=== PATIENT | male | born 1970 | race Caucasian/White ===

== ENCOUNTER 2017-06-10 15:32 | Emergency (ER) | payer BC ==
[~2017-06-10] VITALS: Ht 182.9 cm; Wt 101.0 kg
[2017-06-10 16:14] LABS: HEMATOCRIT 31.5 % (38.0-50.0); MCH 25.3 PG (29.0-34.0); MCHC 31.4 G/DL (30.0-36.0); MCV 80.4 FL (86-99); MEAN PLAT.VOLUME 8.8 uM^3 (9.0-12.4); PLATELET COUNT 389 K/uL (156-360); RBC DIS.WIDTH-CV 15.1 % (11.8-14.6); RBC DIS.WIDTH-SD 44.4 % (39-53); RED BLOOD COUNT 3.92 M/uL (4.00-5.50); WHITE BLOOD COUNT 7.5 K/uL (4.1-10.2)
[2017-06-10 16:24] LABS: CHLORIDE 105 mEq/L (99-109); POTASSIUM 4.2 mEq/L (3.7-5.4)
[2017-06-10 16:25] LABS: SODIUM 137 mEq/L (136-147)
[2017-06-10 16:28] LABS: ANION GAP 8 MEQ/L (2-14)
[2017-06-10 16:29] LABS: TOTAL BILIRUBIN 0.3 mg/dL (0.0-1.0)
[2017-06-10 16:30] LABS: ALKALINE PHOSPHATASE 78 IU/L (3-129); GFR ESTIMATE (CALCULATED) > 59 mL/min/
[2017-06-10 16:32] LABS: UREA NITROGEN (BUN) 21 mg/dL (9-23)
[2017-06-10 16:34] LABS: GLUCOSE 37 mg/dL (70-99); LIPASE 15 U/L (1.0-51.0)
[2017-06-10 16:35] LABS: TROP-I INTERPRETATION NEGATIVE; TROPONIN-I < 0.01 ng/mL (0.0-0.30)
[2017-06-10 17:10] LABS: POINT-OF-CARE METER ID UU13113800
[2017-06-10 17:13] LABS: ADD MIUA? NO; BILIRUBIN NEGATIVE; BLOOD NEGATIVE; COLOR COLORLESS ((YELLOW)); GLUCOSE (STRIP) NEGATIVE; KETONES NEGATIVE; LEUKOCYTES NEGATIVE; NITRITE NEGATIVE; PROTEIN (STRIP) NEGATIVE; SPECIFIC GRAVITY 1.004 (1.000-1.030); UCUL ADDED? NO; UROBILINOGEN 0.2 MG/DL (0.2-1.0)
[2017-06-10] MEDS ORDERED: LEVEMIR100 UNIT/2 SC (17:30)
[2017-06-10] MEDS ORDERED: LISINOPRIL-HCT1 EAC3 PO (17:30)
[2017-06-10] MEDS ORDERED: LEVOTHYROXINE75 MCG PO (17:30)
[2017-06-10] MEDS ORDERED: AMLODIPINE BES2.5 MG PO (17:30)
[2017-06-10] MEDS ORDERED: ROSUVASTATIN CA20 MG PO (17:30)
[2017-06-10] MEDS ORDERED: ASPIR-LOW81 MG PO (17:31)
[2017-06-10] MEDS ORDERED: TYLENOL EXTRA500 MG PO (17:31)
[2017-06-10] MEDS ORDERED: NOVOLOG PE100 UNITS/ SC (17:31)
[2017-06-10 18:57] LABS: TROP-I INTERPRETATION NEGATIVE; TROPONIN-I < 0.01 ng/mL (0.0-0.30)
[2017-06-10 19:56] VITALS: BP 146/77
[2017-06-11 08:05] LABS: POINT-OF-CARE METER ID UU13113778
== END 2017-06-10 19:56 | disposition home or self-care (01) ==
LOC: EME 15:32
PROVIDERS: Physician Assistant
DX: M25.512 Pain in left shoulder (principal); D64.9 Anemia, unspecified; E11.649 Type 2 diabetes mellitus with hypoglycemia without coma; E78.5 Hyperlipidemia, unspecified; I10 Essential (primary) hypertension; F17.200 Nicotine dependence, unspecified, uncomplicated
CPT/HCPCS: 71020; 80053; 81003; 82948; 83690; 84484; 85027; 93005; 99281; 99284

== ENCOUNTER → 2017-09-03 | Outpatient (CLI) | payer BC ==
[~2017-09-03] MED LIST: AMLODIPINE BES2.5 MG PO; ASPIR-LOW81 MG PO; LEVEMIR100 UNIT/2 SC; LEVOTHYROXINE75 MCG PO; LISINOPRIL-HCT1 EAC3 PO; NOVOLOG PE100 UNITS/ SC; ROSUVASTATIN CA20 MG PO; TYLENOL EXTRA500 MG PO
== END | disposition home or self-care (01) ==
LOC: CDC 08:58
DX: Z01.810 Encounter for preprocedural cardiovascular examination (principal); K40.90 Unilateral inguinal hernia, without obstruction or gangrene, not specified as recurrent; R94.31 Abnormal electrocardiogram [ECG] [EKG]
CPT/HCPCS: 93000

== ENCOUNTER 2017-09-13 05:21 | Day surgery (SDC) | payer BC ==
[~2017-09-13] VITALS: Ht 182.9 cm; Wt 104.3 kg
[~2017-09-13 05:21] MED LIST changes: +IRON325 M1 PO; +LEVOTHYROXINE88 MCG PO
[2017-09-13 06:01] VITALS: BP 160/78
[2017-09-13 06:15] LABS: POINT-OF-CARE METER ID UU14174212
[2017-09-13] MEDS ORDERED: PERCOCET 5/31 TABLET PO (10:08)
[2017-09-13] MEDS ORDERED: COLACE100 MG PO (10:08)
[2017-09-13 10:21] LABS: POINT-OF-CARE METER ID UU13113675
[2017-09-13 10:45] VITALS: BP 165/79
[2017-09-13 11:34] VITALS: BP 141/66
== END 2017-09-13 11:35 | disposition home or self-care (01) ==
LOC: SDC 05:21
PROVIDERS: Surgery
PROC: 0YU64JZ Supplement Left Inguinal Region with Synthetic Substitute, Percutaneous Endoscopic Approach (ICD-10-PCS; principal; 2017-09-13)
DX: K40.90 Unilateral inguinal hernia, without obstruction or gangrene, not specified as recurrent (principal); I10 Essential (primary) hypertension; E78.5 Hyperlipidemia, unspecified; E10.9 Type 1 diabetes mellitus without complications; E03.9 Hypothyroidism, unspecified; Z79.82 Long term (current) use of aspirin; Z79.4 Long term (current) use of insulin; F17.200 Nicotine dependence, unspecified, uncomplicated
CPT/HCPCS: 82948; C1727; C1781; J0131; J0330; J0690; J1100; J1170; J1885; J2250; J2405; J2710; J3010

== ENCOUNTER 2017-09-26 21:41 | Inpatient (IN) | payer BC ==
[~2017-09-26] VITALS: Ht 182.9 cm; Wt 109.2 kg
[~2017-09-26 21:41] MED LIST changes: +COLACE100 MG PO; +CYANOCOBAL1000 MCG/2 IM; +NOVOLOG MI100 UNIT/3 SC; +PERCOCET 5/31 TABLET PO
[2017-09-27 12:00] LABS: POINT-OF-CARE METER ID UU13113675
[2017-09-27 14:22] VITALS: BP 142/67
[2017-09-27 14:30] VITALS: BP 142/67
[2017-09-27 14:53] LABS: POINT-OF-CARE METER ID UU13113725
[2017-09-27 14:54] LABS: HEMATOCRIT 34.3 % (38.0-50.0); MCV 83.3 FL (86-99)
[2017-09-27 15:10] LABS: POINT-OF-CARE METER ID UU14174212
[2017-09-27 16:16] LABS: POINT-OF-CARE METER ID UU13113774
[2017-09-27 16:27] VITALS: BP 131/60
[2017-09-27 18:38] LABS: POINT-OF-CARE METER ID UU13113725
[2017-09-27 20:08] VITALS: BP 118/59
[2017-09-27 23:49] VITALS: BP 120/55
[2017-09-28 00:26] LABS: POINT-OF-CARE METER ID UU13113725
[2017-09-28 04:00] VITALS: BP 117/60
[2017-09-28 05:59] LABS: POINT-OF-CARE METER ID UU13113774
[2017-09-28 06:15] LABS: HEMATOCRIT 32.7 % (38.0-50.0); MCH 27.2 PG (29.0-34.0); MCHC 32.7 G/DL (30.0-36.0); MCV 83.2 FL (86-99); MEAN PLAT.VOLUME 9.2 uM^3 (9.0-12.4); PLATELET COUNT 359 K/uL (156-360); RBC DIS.WIDTH-CV 14.1 % (11.8-14.6); RED BLOOD COUNT 3.93 M/uL (4.00-5.50)
[2017-09-28 06:41] LABS: ANION GAP 8 MEQ/L (2-14); CHLORIDE 103 MEQ/L (99-109); GFR ESTIMATE (CALCULATED) 49 mL/min/; GLUCOSE 89 mg/dL (70-99); POTASSIUM 4.5 MEQ/L (3.7-5.4); SAMPLE HEMOLYSIS CHECK 0; SAMPLE ICTERIC CHECK 0; SAMPLE LIPEMIA CHECK 0; SODIUM 136 MEQ/L (136-147); UREA NITROGEN (BUN) 22 mg/dL (9-23)
[2017-09-28 07:00] VITALS: BP 123/62
[2017-09-28 11:13] VITALS: BP 140/67
[2017-09-28 12:17] LABS: POINT-OF-CARE METER ID UU13113774
[2017-09-28 15:20] VITALS: BP 132/63
[2017-09-28 16:29] LABS: POINT-OF-CARE METER ID UU13113725
[2017-09-28 20:03] VITALS: BP 144/67
[2017-09-28 22:28] LABS: POINT-OF-CARE METER ID UU13113725
[2017-09-28 23:32] VITALS: BP 148/65
[2017-09-29 04:12] VITALS: BP 149/67
[2017-09-29 06:03] LABS: POINT-OF-CARE METER ID UU13113725
[2017-09-29 07:24] VITALS: BP 151/72
[2017-09-29 11:30] VITALS: BP 162/73
[2017-09-29] MEDS ORDERED: ENDOCET 5-3251 EACH PO (11:30)
[2017-09-29 15:15] LABS: POINT-OF-CARE METER ID UU13113774
[2017-09-29 15:32] VITALS: BP 163/71
[2017-09-29 16:29] LABS: POINT-OF-CARE METER ID UU13113774
[2017-09-29 22:37] LABS: POINT-OF-CARE METER ID UU13113774
== END 2017-09-29 16:39 | disposition home or self-care (01) | DRG 658 ==
LOC: ENRESERV 21:41 → 2SOUTH 09-27 06:16 → ENRESERV 09-27 12:21 → 5EAST 09-27 13:42
PROVIDERS: Urology
PROC: 0TB10ZZ Excision of Left Kidney, Open Approach (ICD-10-PCS; principal; 2017-09-27)
DX: C64.2 Malignant neoplasm of left kidney, except renal pelvis (principal); E89.0 Postprocedural hypothyroidism; E78.2 Mixed hyperlipidemia; I10 Essential (primary) hypertension; K21.9 Gastro-esophageal reflux disease without esophagitis; E50.9 Vitamin A deficiency, unspecified; E53.8 Deficiency of other specified B group vitamins; E11.3299 Type 2 diabetes mellitus with mild nonproliferative diabetic retinopathy without macular edema, unspecified eye; Z79.4 Long term (current) use of insulin; F17.210 Nicotine dependence, cigarettes, uncomplicated; E11.65 Type 2 diabetes mellitus with hyperglycemia
CPT/HCPCS: 80048; 82948; 85014; 85018; 85027; 88305; 88307; 88331; J0330; J0690; J1100; J1170; J1815; J2250; J2405; J2710; J2795; J3010; J7030; J7050; J7120

== ENCOUNTER 2017-10-13 05:28 | Emergency (ER) | payer BC ==
[~2017-10-13] VITALS: Ht 182.9 cm; Wt 102.5 kg
[~2017-10-13 05:28] MED LIST changes: +ENDOCET 5-3251 EACH PO
[2017-10-13 06:08] LABS: HEMATOCRIT 33.2 % (38.0-50.0); MCH 27.8 PG (29.0-34.0); MCHC 33.1 G/DL (30.0-36.0); MCV 84.1 FL (86-99); MEAN PLAT.VOLUME 8.5 uM^3 (9.0-12.4); RBC DIS.WIDTH-CV 13.9 % (11.8-14.6); RBC DIS.WIDTH-SD 42.6 % (39-53); RED BLOOD COUNT 3.95 M/uL (4.00-5.50); WHITE BLOOD COUNT 13.9 K/uL (4.1-10.2)
[2017-10-13 06:11] LABS: PLATELET COUNT 615 K/uL (156-360)
[2017-10-13 06:19] LABS: CHLORIDE 97 mEq/L (99-109); POTASSIUM 4.5 mEq/L (3.7-5.4); SODIUM 131 mEq/L (136-147)
[2017-10-13 06:21] LABS: GLUCOSE 346 mg/dL (70-99)
[2017-10-13 06:22] LABS: ANION GAP 12 MEQ/L (2-14)
[2017-10-13 06:25] LABS: GFR ESTIMATE (CALCULATED) 53 mL/min/
[2017-10-13 06:26] LABS: UREA NITROGEN (BUN) 19 mg/dL (9-23)
[2017-10-13 06:45] LABS: ADD MIUA? YES; BILIRUBIN NEGATIVE; BLOOD LARGE; COLOR RED ((YELLOW)); GLUCOSE (STRIP) NEGATIVE; KETONES NEGATIVE; LEUKOCYTES NEGATIVE; NITRITE NEGATIVE; PH, URINE 7.5 (5-8); PROTEIN (STRIP) >300; UROBILINOGEN 0.2 MG/DL (0.2-1.0)
[2017-10-13 06:46] LABS: RED BLOOD CELLS TNTC /HPF (0-5); UCUL ADDED? YES
[2017-10-13 09:26] VITALS: BP 179/86
== END 2017-10-13 09:27 | disposition home or self-care (01) ==
LOC: EME 05:28
PROVIDERS: Emergency Medicine
DX: R31.0 Gross hematuria (principal); Z85.528 Personal history of other malignant neoplasm of kidney; Z90.5 Acquired absence of kidney; I10 Essential (primary) hypertension; E78.5 Hyperlipidemia, unspecified; E03.9 Hypothyroidism, unspecified; E11.9 Type 2 diabetes mellitus without complications; Z79.4 Long term (current) use of insulin; F17.200 Nicotine dependence, unspecified, uncomplicated
CPT/HCPCS: 74176; 80048; 81003; 85027; 87086; 99281; 99284; J2270; J7040

== ENCOUNTER 2017-10-22 23:05 | Inpatient (IN) | payer BC ==
[~2017-10-22] VITALS: Ht 182.9 cm; Wt 97.6 kg
[2017-10-23] VITALS (14 sets, daily range): BP systolic 98–169; BP diastolic 56–85
[2017-10-23 00:05] LABS: EOSINOPHIL (%) 3.2 % (0-5); EOSINOPHIL COUNT 0.4 K/uL (0-0.3); IMMATURE GRANULOCYTE (%) 0.4 % (0.0-0.7); IMMATURE GRANULOCYTE COUNT 0.1 K/uL; LYMPHOCYTE COUNT 2.4 K/uL (1.0-2.8); MCH 27.8 PG (29.0-34.0); MCHC 34.3 G/DL (30.0-36.0); MCV 81.1 FL (86-99); MONOCYTE (%) 9.9 % (3-12); MONOCYTE COUNT 1.2 K/uL (0-0.8); NEUTROPHIL (%) 66.6 % (45-76); RBC DIS.WIDTH-CV 13.2 % (11.8-14.6); RBC DIS.WIDTH-SD 39.5 % (39-53); RED BLOOD COUNT 2.59 M/uL (4.00-5.50); WHITE BLOOD COUNT 12.1 K/uL (4.1-10.2)
[2017-10-23 00:12] LABS: CHLORIDE 90 mEq/L (99-109); POTASSIUM 3.8 mEq/L (3.7-5.4); PTT 25.4 SEC (25-37); SODIUM 125 mEq/L (136-147)
[2017-10-23 00:13] LABS: GLUCOSE 169 mg/dL (70-99)
[2017-10-23 00:15] LABS: ANION GAP 12 MEQ/L (2-14)
[2017-10-23 00:17] LABS: GFR ESTIMATE (CALCULATED) 27 mL/min/
[2017-10-23 00:18] LABS: UREA NITROGEN (BUN) 40 mg/dL (9-23)
[2017-10-23 01:04] LABS: MEAN PLAT.VOLUME 8.4 uM^3 (9.0-12.4); PLAT.SUFFICIENCY ADEQUATE
[2017-10-23 01:11] LABS: PLATELET COUNT 399 K/uL (156-360)
[2017-10-23 11:38] LABS: BASOPHIL COUNT 0.1 K/uL (0-0.1); EOSINOPHIL (%) 1.3 % (0-5); EOSINOPHIL COUNT 0.1 K/uL (0-0.3); HEMATOCRIT 26.2 % (38.0-50.0); IMMATURE GRANULOCYTE (%) 0.3 % (0.0-0.7); INSTRUMENT ABS NEUTROPHIL CT 7.9 K/uL; LYMPHOCYTE COUNT 1.4 K/uL (1.0-2.8); MCH 27.7 PG (29.0-34.0); MCHC 33.6 G/DL (30.0-36.0); MCV 82.4 FL (86-99); MEAN PLAT.VOLUME 8.6 uM^3 (9.0-12.4); MONOCYTE (%) 10.5 % (3-12); MONOCYTE COUNT 1.1 K/uL (0-0.8); NEUTROPHIL (%) 74.1 % (45-76); NEUTROPHIL COUNT 7.9 K/uL (1.8-6.4); PLATELET COUNT 409 K/uL (156-360); RBC DIS.WIDTH-CV 13.2 % (11.8-14.6); WHITE BLOOD COUNT 10.6 K/uL (4.1-10.2)
[2017-10-23 11:39] LABS: RED BLOOD COUNT 3.18 M/uL (4.00-5.50)
[2017-10-23 12:13] LABS: ANION GAP 6 MEQ/L (2-14); CHLORIDE 91 MEQ/L (99-109); GFR ESTIMATE (CALCULATED) 34 mL/min/; POTASSIUM 5.4 MEQ/L (3.7-5.4); SAMPLE HEMOLYSIS CHECK 0; SAMPLE ICTERIC CHECK 0; SAMPLE LIPEMIA CHECK 0; SODIUM 122 MEQ/L (136-147); UREA NITROGEN (BUN) 39 mg/dL (9-23)
[2017-10-23 12:14] LABS: GLUCOSE 458 mg/dL (70-99)
[2017-10-23 16:48] LABS: ANION GAP 7 MEQ/L (2-14); CHLORIDE 90 MEQ/L (99-109); POTASSIUM 5.9 MEQ/L (3.7-5.4); SAMPLE HEMOLYSIS CHECK 0; SAMPLE ICTERIC CHECK 0; SAMPLE LIPEMIA CHECK 0; SODIUM 121 MEQ/L (136-147)
[2017-10-23 17:03] LABS: GFR ESTIMATE (CALCULATED) 34 mL/min/; UREA NITROGEN (BUN) 36 mg/dL (9-23)
[2017-10-23 17:04] LABS: GLUCOSE 502 mg/dL (70-99)
[2017-10-23 17:27] LABS: Estimated Average Glucose 192 mg/dL (70-123); HEMOGLOBIN A1c (GLYCOHEMOGLOB) 8.3 % HGB (Below 5.7)
[2017-10-23 17:48] LABS: HEMATOCRIT 28.9 % (38.0-50.0)
[2017-10-24 00:24] LABS: MCV 82.6 FL (86-99)
[2017-10-24 03:51] VITALS: BP 129/60
[2017-10-24 05:55] LABS: POINT-OF-CARE METER ID UU13113725
[2017-10-24 06:21] LABS: HEMATOCRIT 28.3 % (38.0-50.0); MCH 28.6 PG (29.0-34.0); MCV 81.8 FL (86-99); MEAN PLAT.VOLUME 8.8 uM^3 (9.0-12.4); PLATELET COUNT 417 K/uL (156-360); RBC DIS.WIDTH-CV 13.2 % (11.8-14.6); RBC DIS.WIDTH-SD 39.5 % (39-53); RED BLOOD COUNT 3.46 M/uL (4.00-5.50); WHITE BLOOD COUNT 16.4 K/uL (4.1-10.2)
[2017-10-24 07:06] VITALS: BP 117/58
[2017-10-24 08:12] LABS: POINT-OF-CARE METER ID UU13113774
[2017-10-24 08:12] LABS: POINT-OF-CARE METER ID UU13113774
[2017-10-24 08:13] LABS: POINT-OF-CARE METER ID UU13113774
[2017-10-24 08:22] LABS: ANION GAP 8 MEQ/L (2-14); CHLORIDE 97 MEQ/L (99-109); GFR ESTIMATE (CALCULATED) 36 mL/min/; POTASSIUM 5.1 MEQ/L (3.7-5.4); SAMPLE HEMOLYSIS CHECK 0; SAMPLE ICTERIC CHECK 0; SAMPLE LIPEMIA CHECK 0; UREA NITROGEN (BUN) 36 mg/dL (9-23)
[2017-10-24 08:23] LABS: GLUCOSE 189 mg/dL (70-99); SODIUM 130 MEQ/L (136-147)
[2017-10-24 11:05] LABS: POINT-OF-CARE METER ID UU13113725
[2017-10-24 11:30] LABS: POINT-OF-CARE METER ID UU13113774
[2017-10-24 11:30] LABS: POINT-OF-CARE METER ID UU13113774
[2017-10-24 11:36] LABS: POINT-OF-CARE METER ID UU13113725
[2017-10-24 15:55] VITALS: BP 145/70
[2017-10-24 15:57] LABS: POINT-OF-CARE METER ID UU13113774
[2017-10-24 20:20] LABS: POINT-OF-CARE METER ID UU13113725
[2017-10-25] VITALS (11 sets, daily range): BP systolic 120–180; BP diastolic 65–86
[2017-10-25 05:13] LABS: POINT-OF-CARE METER ID UU13113725
[2017-10-25 06:09] LABS: HEMATOCRIT 28.2 % (38.0-50.0); MCH 28.2 PG (29.0-34.0); MCHC 33.7 G/DL (30.0-36.0); MCV 83.7 FL (86-99); RBC DIS.WIDTH-SD 41.9 % (39-53); RED BLOOD COUNT 3.37 M/uL (4.00-5.50); WHITE BLOOD COUNT 12.8 K/uL (4.1-10.2)
[2017-10-25 06:10] LABS: BASOPHIL COUNT 0.1 K/uL (0-0.1); EOSINOPHIL (%) 0.9 % (0-5); EOSINOPHIL COUNT 0.1 K/uL (0-0.3); IMMATURE GRANULOCYTE (%) 0.5 % (0.0-0.7); IMMATURE GRANULOCYTE COUNT 0.1 K/uL; INSTRUMENT ABS NEUTROPHIL CT 9.8 K/uL; LYMPHOCYTE COUNT 1.5 K/uL (1.0-2.8); MEAN PLAT.VOLUME 8.9 uM^3 (9.0-12.4); MONOCYTE (%) 9.5 % (3-12); MONOCYTE COUNT 1.2 K/uL (0-0.8); NEUTROPHIL (%) 76.9 % (45-76); NEUTROPHIL COUNT 9.8 K/uL (1.8-6.4); PLATELET COUNT 402 K/uL (156-360); RBC DIS.WIDTH-CV 13.7 % (11.8-14.6)
[2017-10-25 06:38] LABS: ANION GAP 9 MEQ/L (2-14); CHLORIDE 96 MEQ/L (99-109); GFR ESTIMATE (CALCULATED) 43 mL/min/ (58.99-99999); GLUCOSE 73 mg/dL (70-99); POTASSIUM 4.2 MEQ/L (3.7-5.4); SAMPLE HEMOLYSIS CHECK 0; SAMPLE ICTERIC CHECK 0; SAMPLE LIPEMIA CHECK 0; SODIUM 130 MEQ/L (136-147); UREA NITROGEN (BUN) 25 mg/dL (9-23)
[2017-10-25 11:33] LABS: POINT-OF-CARE METER ID UU13113725
[2017-10-25 11:48] LABS: HEMATOCRIT 29.5 % (38.0-50.0); MCH 27.8 PG (29.0-34.0); MCHC 33.6 G/DL (30.0-36.0); MCV 82.9 FL (86-99); MEAN PLAT.VOLUME 8.5 uM^3 (9.0-12.4); PLATELET COUNT 442 K/uL (156-360); RBC DIS.WIDTH-CV 13.5 % (11.8-14.6); RBC DIS.WIDTH-SD 41.3 % (39-53); RED BLOOD COUNT 3.56 M/uL (4.00-5.50)
[2017-10-25 16:21] LABS: HEMATOCRIT 26.5 % (38.0-50.0); MCV 83.9 FL (86-99)
[2017-10-25 16:24] LABS: POINT-OF-CARE METER ID UU13113774
[2017-10-26 03:27] VITALS: BP 152/72
[2017-10-26 03:40] LABS: POINT-OF-CARE METER ID UU13113725
[2017-10-26 06:04] LABS: POINT-OF-CARE METER ID UU13113725
[2017-10-26 06:48] VITALS: BP 140/67
[2017-10-26 09:41] LABS: HEMATOCRIT 26.6 % (38.0-50.0); MCH 27.7 PG (29.0-34.0); MCHC 33.1 G/DL (30.0-36.0); MCV 83.6 FL (86-99); MEAN PLAT.VOLUME 8.7 uM^3 (9.0-12.4); PLATELET COUNT 391 K/uL (156-360); RBC DIS.WIDTH-CV 13.5 % (11.8-14.6); RBC DIS.WIDTH-SD 41.5 % (39-53); RED BLOOD COUNT 3.18 M/uL (4.00-5.50); WHITE BLOOD COUNT 9.8 K/uL (4.1-10.2)
[2017-10-26 10:11] LABS: ANION GAP 8 MEQ/L (2-14); CHLORIDE 94 MEQ/L (99-109); GFR ESTIMATE (CALCULATED) 46 mL/min/ (58.99-99999); GLUCOSE 179 mg/dL (70-99); POTASSIUM 4.9 MEQ/L (3.7-5.4); SAMPLE HEMOLYSIS CHECK 0; SAMPLE ICTERIC CHECK 0; SAMPLE LIPEMIA CHECK 0; SODIUM 129 MEQ/L (136-147); UREA NITROGEN (BUN) 20 mg/dL (9-23)
[2017-10-26 11:08] LABS: POINT-OF-CARE METER ID UU13113725
[2017-10-26] MEDS ORDERED: TAMSULOSIN HCL0.4 MG PO (12:31)
[2017-10-26 15:15] VITALS: BP 138/65
[2017-10-26 16:06] LABS: POINT-OF-CARE METER ID UU13113725
[2017-10-26 20:52] LABS: POINT-OF-CARE METER ID UU13113725
[2017-10-26 22:31] VITALS: BP 181/81
[2017-10-26 23:20] LABS: HEMATOCRIT 27.5 % (38.0-50.0); MCV 83.3 FL (86-99)
[2017-10-27 00:30] VITALS: BP 167/79
[2017-10-27 02:26] LABS: POINT-OF-CARE METER ID UU13113725
[2017-10-27 05:41] LABS: POINT-OF-CARE METER ID UU13113725
[2017-10-27 05:59] LABS: HEMATOCRIT 27.4 % (38.0-50.0); MCH 28.3 PG (29.0-34.0); MCHC 33.9 G/DL (30.0-36.0); MCV 83.3 FL (86-99); MEAN PLAT.VOLUME 8.8 uM^3 (9.0-12.4); PLATELET COUNT 405 K/uL (156-360); RBC DIS.WIDTH-CV 13.3 % (11.8-14.6); RBC DIS.WIDTH-SD 40.3 % (39-53); RED BLOOD COUNT 3.29 M/uL (4.00-5.50); WHITE BLOOD COUNT 21.7 K/uL (4.1-10.2)
[2017-10-27 06:23] LABS: ANION GAP 11 MEQ/L (2-14); CHLORIDE 92 MEQ/L (99-109); GFR ESTIMATE (CALCULATED) 53 mL/min/ (58.99-99999); GLUCOSE 219 mg/dL (70-99); POTASSIUM 4.8 MEQ/L (3.7-5.4); SAMPLE HEMOLYSIS CHECK 0; SAMPLE ICTERIC CHECK 0; SAMPLE LIPEMIA CHECK 0; SODIUM 128 MEQ/L (136-147); UREA NITROGEN (BUN) 20 mg/dL (9-23)
[2017-10-27 07:30] VITALS: BP 127/58
[2017-10-27 09:42] LABS: ADD MIUA? YES; BILIRUBIN NEGATIVE; BLOOD LARGE; COLOR AMBER ((YELLOW)); GLUCOSE (STRIP) NEGATIVE; KETONES NEGATIVE; LEUKOCYTES LARGE; NITRITE POSITIVE; PROTEIN (STRIP) 30; SPECIFIC GRAVITY 1.015 (1.000-1.030); UROBILINOGEN 0.2 MG/DL (0.2-1.0)
[2017-10-27 09:47] LABS: BACTERIA 3+ /HPF; BUDDING YEAST 2+; EPITHELIAL CELLS NONE SEEN /HPF; MUCUS 2+ /LPF; RED BLOOD CELLS TNTC /HPF (0-5); UCUL ADDED? YES; WHITE BLOOD CELLS TNTC /HPF (0-5); WHITE BLOOD CELLS CLUMP MANY /HPF (0-5)
[2017-10-27 11:12] LABS: POINT-OF-CARE METER ID UU13113725
[2017-10-27 16:11] LABS: POINT-OF-CARE METER ID UU13113725
[2017-10-27 16:30] VITALS: BP 149/67
[2017-10-27 19:45] VITALS: BP 132/63
[2017-10-27 22:10] LABS: POINT-OF-CARE METER ID UU13113725
[2017-10-27 22:56] VITALS: BP 134/61
[2017-10-28 06:03] LABS: POINT-OF-CARE METER ID UU13113774
[2017-10-28 06:14] LABS: EOSINOPHIL (%) 0.6 % (0-5); HEMATOCRIT 24.9 % (38.0-50.0); IMMATURE GRANULOCYTE (%) 0.4 % (0.0-0.7); INSTRUMENT ABS NEUTROPHIL CT 5.5 K/uL; LYMPHOCYTE COUNT 0.9 K/uL (1.0-2.8); MCHC 33.7 G/DL (30.0-36.0); MEAN PLAT.VOLUME 8.7 uM^3 (9.0-12.4); MONOCYTE (%) 7.9 % (3-12); MONOCYTE COUNT 0.6 K/uL (0-0.8); NEUTROPHIL (%) 77.4 % (45-76); NEUTROPHIL COUNT 5.5 K/uL (1.8-6.4); PLATELET COUNT 336 K/uL (156-360); RBC DIS.WIDTH-CV 13.6 % (11.8-14.6); WHITE BLOOD COUNT 7.1 K/uL (4.1-10.2)
[2017-10-28 06:48] LABS: ANION GAP 8 MEQ/L (2-14); CHLORIDE 96 MEQ/L (99-109); GFR ESTIMATE (CALCULATED) 57 mL/min/ (58.99-99999); POTASSIUM 4.3 MEQ/L (3.7-5.4); SAMPLE HEMOLYSIS CHECK 0; SAMPLE ICTERIC CHECK 0; SAMPLE LIPEMIA CHECK 0; SODIUM 131 MEQ/L (136-147); UREA NITROGEN (BUN) 15 mg/dL (9-23)
[2017-10-28 06:51] LABS: GLUCOSE 116 mg/dL (70-99)
[2017-10-28 06:55] VITALS: BP 140/70
[2017-10-28 11:50] LABS: POINT-OF-CARE METER ID UU13113774
[2017-10-28 14:10] LABS: POINT-OF-CARE METER ID UU13113725
[2017-10-28 14:13] LABS: POINT-OF-CARE METER ID UU13113725
[2017-10-28 15:00] LABS: POINT-OF-CARE METER ID UU13113725
[2017-10-28] MEDS ORDERED: BACTRIM,SEPT1 TABLET PO (15:19)
[2017-10-28 15:20] VITALS: BP 131/74
== END 2017-10-28 16:27 | disposition home or self-care (01) | DRG 812 ==
LOC: EME → EDBD 23:05 → EME 23:05 → 5EAST 10-23 02:45 → EDOF 10-23 02:45 → 5EAST 10-23 02:45 → ENRESERV 10-23 03:26 → 5EAST 10-23 04:36 → EDOF 10-23 04:37 → ENRESERV 10-23 04:39 → 5EAST 10-23 04:40
PROVIDERS: Emergency Medicine; Family Medicine; Hospitalist; Urology
PROC: 30233N1 Transfusion of Nonautologous Red Blood Cells into Peripheral Vein, Percutaneous Approach (ICD-10-PCS; principal; 2017-10-23)
DX: D62 Acute posthemorrhagic anemia (principal); R31.0 Gross hematuria; N17.9 Acute kidney failure, unspecified; E86.0 Dehydration; C64.9 Malignant neoplasm of unspecified kidney, except renal pelvis; I10 Essential (primary) hypertension; E11.9 Type 2 diabetes mellitus without complications; E03.9 Hypothyroidism, unspecified; E78.5 Hyperlipidemia, unspecified; D72.829 Elevated white blood cell count, unspecified; E22.2 Syndrome of inappropriate secretion of antidiuretic hormone; F17.200 Nicotine dependence, unspecified, uncomplicated; N32.89 Other specified disorders of bladder; Z85.528 Personal history of other malignant neoplasm of kidney; Z79.4 Long term (current) use of insulin; Z90.5 Acquired absence of kidney
CPT/HCPCS: 71010; 74176; 74177; 80048; 80048 91; 81003; 82436; 82948; 83036; 83930; 83935; 84295; 84300; 84443; 84550; 85014; 85018; 85025; 85027; 85610; 85730; 86850; 86900; 86901; 86920; 87040; 87077; 87086; 87186; 93005; 99281; 99285; J0360; J0696; J1815; J2270; J3420; J7030; J7120; P9016